=== PATIENT | female | born 1975 | race Caucasian/White ===

== ENCOUNTER → 2018-06-14 | Outpatient (CLI) | payer OTHER ==
[~2018-06-14] MED LIST: BIRTH CONTROL PILL; ESCI20; MEDR10 PO; NAPR550 PO; OXYACE5T PO; PROM25 PO; SERT50 PO
[2018-06-18 15:07] LABS: HPV 16 Negative (Negative); HPV 18 Negative (Negative); HPV OTHER HR TYPES Negative (Negative)
== END | disposition home or self-care (01) ==
LOC: LAB 10:18 → LAB SHORT 10:18
PROVIDERS: Obstetrics & Gynecology
DX: Z01.419 Encounter for gynecological examination (general) (routine) without abnormal findings (principal)
CPT/HCPCS: 87624; G0123

== ENCOUNTER 2018-11-19 06:16 | Day surgery (SDC) | payer OTHER ==
[~2018-11-19] VITALS: Ht 167.6 cm; Wt 93.5 kg
[2018-11-19] MEDS ORDERED: SETLAKIN 0.151 EAC1 PO (06:50)
== END 2018-11-19 08:20 | disposition home or self-care (01) ==
LOC: ORSCSDS 06:16
PROVIDERS: Orthopaedic Surgery
PROC: 01N50ZZ Release Median Nerve, Open Approach (ICD-10-PCS; principal; 2018-11-19 07:30)
DX: G56.02 Carpal tunnel syndrome, left upper limb (principal); E66.9 Obesity, unspecified; D64.9 Anemia, unspecified; E66.01 Morbid (severe) obesity due to excess calories; Z68.33 Body mass index [BMI] 33.0-33.9, adult; Z79.899 Other long term (current) drug therapy
CPT/HCPCS: J2250; J2704; J3010; J7120

== ENCOUNTER → 2019-05-07 | Outpatient (CLI) | payer OTHER ==
[~2019-05-07] MED LIST changes: +SETLAKIN 0.151 EAC1 PO
== END ==
LOC: LAB SHORT 11:17 → PLD 11:17
DX: D22.5 Melanocytic nevi of trunk (principal)
CPT/HCPCS: 88305